=== PATIENT | female | born 1950 | race African-American/Black ===

== ENCOUNTER 2017-08-22 05:21 | Inpatient (IN) | payer OTHER ==
[~2017-08-22] VITALS: Ht 167.6 cm; Wt 123.8 kg
--- NOTE | ~2017-08-22 | EKG ---
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 : 1950 Requested By: Joo Hamilton Order Number: [id number] MD: Willem Michelle Measurements Intervals [place] Rate: 74 P: 43 MI: 196 QRS: -49 QRSD: 103 T: 88 QT: 578 QTc: 642 Interpretive Statements Sinus rhythm Left anterior fascicular block Abnormal R-wave progression, late transition Prolonged QT interval No previous ECG available for comparison Electronically Signed On 08-22-2017 10:39:30 CDT by Willem Michelle [email or web address] <ELECTRONICALLY SIGNED> By: Willem Michelle MD, [facility] 08/22/17 1039 Willem Michelle MD, [facility] /EPI
--- NOTE | ~2017-08-22 | O ---
[facility] [place] [address] OPERATIVE REPORT Name: NYDIA EASTMAN Room #: 424-P [facility] IN M.R.#: [id number] Admission: 08/22/17 Attend Phys: Joo Hamilton MD, F Discharge: Date of : 50 Report #: [id number] THIS REPORT FOR: //name// CC: Delma Hamilton DATE OF SERVICE: 08/22/2017 SURGEON: Joo Hamilton MD. RESEARCH NURSE PRACTITIONER: Bill Anne MD. PREOPERATIVE DIAGNOSES: 1. Morbid obesity. 2. Type 2 diabetes mellitus. 3. Arthritis. 4. Gastroesophageal reflux disease. 5. Hypertension. 6. Hypercholesterolemia. 7. Obstructive sleep apnea. POSTOPERATIVE DIAGNOSES: 1. Morbid obesity. 2. Type 2 diabetes mellitus. 3. Arthritis. 4. Gastroesophageal reflux disease. 5. Hypertension. 6. Hypercholesterolemia. 7. Obstructive sleep apnea. 8. Intraabdominal adhesions. PROCEDURE: Laparoscopic sleeve gastrectomy with EGD. ANESTHESIA: General endotracheal anesthesia and local anesthetic. ESTIMATED BLOOD LOSS: 5 mL. SPECIMEN: Lateral stomach. COMPLICATIONS: None appreciated. INDICATIONS FOR PROCEDURE: This is a 67-year-old female patient with a BMI of 44 at her last office visit (5 feet 6 inches tall, 273 pounds). The patient has been unable to lose significant weight with diet and exercise changes. Her maximum weight is 280 pounds. She has had difficulty with her weight since her early 30s after her . She has tried numerous weight loss programs and [facility] [address] [place] [address] OPERATIVE REPORT Name: NYDIA EASTMAN Room #: 424-P ADM IN M.R.#: [id number] Admission: 08/22/17 Attend Phys: Joo Hamilton MD, F Discharge: Date of : 50 Report #: [id number] plans with limited weight loss success. Any amount of weight she has lost, she has quickly regained, plus additional weight after stopping the modality. Bariatric surgery is indicated. She has been cleared from a multidisciplinary standpoint. She presents today for laparoscopic sleeve gastrectomy with EGD. OPERATIVE FINDINGS: On EGD, the patient had a normal appearing esophagus down to the GE junction and Z-line, measured at 38 cm from the teeth. Upon entrance into the stomach, the gastric mucosa was normal with no polyps, masses, diverticula or ulcers identified. The duodenum was normal to the third portion with similar findings. On retroflexion of the scope within the antrum of the stomach, there was no hiatal hernia appreciated. Laparoscopically, the patient had a normal appearing stomach. She had intraabdominal adhesions from her previous operations and takedown of these adhesions was necessary, although minimal. The gastric sleeve staple line was located 4 cm proximal/lateral to the pylorus, 3 cm lateral to the incisura of the stomach and 1 cm lateral to the GE junction. There was no evidence for a significant hiatal hernia. Her leak test was negative, whereby no air bubbles were seen forming within the Tisseel immediately after its application with insufflation of carbon dioxide into the sleeve. The excised stomach held nearly 1000 mL of fluid on the backtable. At the conclusion of the operation, the sponge, needle and instrument counts were correct. No other significant intra-abdominal pathology was seen, and there was no evidence for iatrogenic injury. DESCRIPTION OF PROCEDURE IN DETAIL: After the benefits and risks of the procedure were explained to the patient which include but are not limited to risks of bleeding, infection, postoperative pain, postoperative expectations and risks of DVT and pulmonary embolus, informed consent was obtained. The patient was identified in the preoperative holding area. The patient was given IV antibiotics as documented in the chart in line with [facility] protocol. The patient was then taken to the operating room and was placed in the supine position. The patient was given IV sedation and was intubated without incident. SCDs were placed on the patient's bilateral lower extremities prior to induction of anesthesia. The patient had been placed in the modified low lying dorsal lithotomy position in stirrups on the beanbag. The beanbag and the patient were taped to the bed to secure the patient. A time-out was then performed to correctly identify the patient and procedure. An orogastric tube was placed by anesthesia. A bite block was placed and the fiberoptic EGD scope was passed into the patient's oropharynx, down the esophagus, into the stomach, and into the third portion of the duodenum. Findings are as noted above. The scope was slowly withdrawn into the antrum and the scope was retroflexed. The hiatus was visualized. The scope was then straightened and the end of the gastroscope was placed at the pylorus. The [address] [address] OPERATIVE REPORT Name: NYDIA EASTMAN Room #: 424-P [facility] IN M.R.#: [id number] Admission: 08/22/17 Attend Phys: Joo Hamilton MD, F Discharge: Date of : 50 Report #: [id number] stomach was decompressed with the scope. The patient's abdomen was then prepped and draped in the standard sterile fashion with surgical prep. Local anesthetic was infiltrated into the skin and subcutaneous tissue in the left supraumbilical area where a sharp #15-blade scalpel was used to make a 5-mm incision. The 5-mm Visiport was placed intraperitoneally with the 5-mm 0-degree angled laparoscope. Pneumoperitoneum was then achieved with insufflation of carbon dioxide to 15 mmHg. A 5-mm 30-degree angled laparoscope was then inserted. The 15-mm port was placed in the right supraumbilical area after local anesthetic was infiltrated into the skin and subcutaneous tissue and an appropriately sized incision was made. Two additional 5 mm ports were placed in the left abdomen after local anesthetic was infiltrated and incisions were made. All ports were placed under direct visualization. The patient was then placed in reverse Trendelenburg position. Local anesthetic was infiltrated into the skin and subcutaneous tissue in the subxiphoid area and a 5-mm incision was made through which a 5-mm obturator was passed into the abdominal cavity through the fascia to create a passageway for the James liver retractor. The retractor was placed to retract the liver anteriorly. The retractor was held in place with the Iron Irradiated Fuel Handler apparatus. All abdominal adhesions were then taken down with blunt dissection, sharp dissection and judicious use of the ultrasonic dissector. The gastrosplenic ligament and short gastric vessels were then divided using the ultrasonic dissector with appropriate traction. Bleeding points were made hemostatic with the ultrasonic dissector. Dissection was carried proximally up to the left saman of the diaphragm. The distal end point of dissection was then measured at 4 cm proximal to the pylorus. The short gastric vessels and gastrocolic ligaments were dissected to that level. The stomach was then rotated medially to visualize any posterior attachments/adhesions to the stomach. The adhesions were dissected with a combination of sharp dissection and use of the ultrasonic dissector. The endoscope was then slightly withdrawn to place it along the lesser curvature of the stomach. Suction was applied to the orogastric tube which was then removed, leaving the endoscope in place as a 34-Jamaican bougie. The gastric sleeve was then created. Two black loads of the powered endoscopic MANUEL stapler buttressed with Jazmine-Strips were used to staple and divide the stomach 4 cm proximal to the pylorus. Additional green loads buttressed with Jazmine-strips were used to staple off the remainder of the stomach using the endoscope as the bougie. Care was taken to ensure that greater than 3 cm of space was present between the incisura and the staple line. The stomach was fully transected and placed in the right upper quadrant of the abdomen for later removal. 10 ml of Tisseel was applied to the entire length of the staple line with the Duplospray aerosolizer to fully ensure hemostasis. The leak test was performed next. The sleeve was insufflated with the [facility] [address] [place] [address] OPERATIVE REPORT Name: NYDIA EASTMAN Room #: 424-P [facility] IN M.R.#: [id number] Admission: 08/22/17 Attend Phys: Joo Hamilton MD, F Discharge: Date of : 50 Report #: [id number] endoscope which was slowly withdrawn. No air bubbles were seen forming in the Tisseel laparoscopically. Endoluminally, no bleeding was seen and the lumen was smooth and contoured. The stomach was fully decompressed and the scope was slowly withdrawn. The James liver retractor was then loosened from the Iron Irradiated Fuel Handler apparatus and it was removed from the abdominal cavity without difficulty. The stomach was then removed from the patient's body through the 15-mm port under direct visualization. A small amount stretching of the fascia was required to create an opening large enough for removal of the stomach. After its removal, the 15-mm port site fascial opening was closed with an 0-PDS suture using the Jordon-Moy laparoscopic fascial closure device. The suture was tied under direct visualization to ensure no incorporation of intraabdominal content. All ports were removed after the abdominal cavity was desufflated. Interrupted subcuticular 4-0 Monocryl sutures and Dermabond were used to close all skin incisions. The patient tolerated the procedure well. The patient was awakened, extubated and taken to the recovery room in stable condition with no apparent intraoperative complications. <ELECTRONICALLY SIGNED> By: Joo Hamilton MD, FACS 08/23/17 0735 1602 [id number] Joo Hamilton MD, FACS /nt
--- NOTE | ~2017-08-22 | S ---
[facility] [place] [address] [place] [address] SURGICAL PATH RPT PROCEDURE Name: NYDIA EASTMAN Room #: 424-P DIS IN M.R.#: [id number] Admission: 08/22/17 Date of : 50 Discharge: 08/23/17 Report #: [id number] Path Case #: [id number] PATHOLOGY REPORT COLLECTION DATE: 08/22/2017 RECEIVED DATE: 08/22/2017 SUBMITTING PHYS: Dr. Joo Hamilton OTHER PHYS: Dr. Delma Anne SPECIMEN(S) RECEIVED: A.Sleeve gastrectomy * * * * * * * * * * * * FINAL DIAGNOSIS: "Sleeve gastrectomy", partial gastrectomy: - Gastric mucosa, submucosa and muscular wall with minimal histologic alterations. (CLW:rolly; 08/23/2017) PATHOLOGIST: Leticia Diop M.D. REPORT ELECTRONICALLY SIGNED BY: Leticia Diop M.D. DATE/TIME: 08/23/2017 17:27 * * * * * * * * * * * * GROSS PATHOLOGY: Received in formalin labeled "Nydia Eastman, gastric sleeve" and consists of a stapled crescent shaped segment of stomach measuring 21.0 x 6.0 x 5.0 cm. The serosa is pink and glistening. Sectioning reveals no mucosal masses. Information Officer sections are submitted A1-A3. (DREW; 08/22/2017) CLINICAL HISTORY: Morbid obesity INITIAL CPT CODE(S): A; 49040 Professional services performed by [facility] at [facility] [address] [place] [address] Technical services performed by [facility] at [address] [place] [address]. [facility] [address] [place] [address] SURGICAL PATH RPT PROCEDURE Name: NYDIA EASTMAN Room #: 424-P DIS IN M.R.#: [id number] Admission: 08/22/17 Date of : 50 Discharge: 08/23/17 Report #: [id number] Path Case #: [id number] [address] PHONE: [phone] DIRECTOR: Johnie Jackson M.D. * * * END OF REPORT * * *
[~2017-08-22 05:21] MED LIST: ASPIR 8181 MG PO; COZAAR 25 MG TA25 M1 PO; GLUCOPHAGE1000 MG PO; GLUCOTROL5 MG PO; LIPITOR80 MG PO; LUMIGAN2.5 M1 OPHTHALMIC; PROTONIX40 M2 PO; SPIRONOLACTONE25 MG PO; VENTOLIN HFA 1818 GM INH; VITAMIN D1000 UNI1 PO; ZANTAC 150MG T150 MG PO
[2017-08-22 08:46] LABS: CALCIUM 9.9 mg/dL (8.5-10.1); CREATININE 1.3 mg/dL (0.6-1.0); POTASSIUM 3.9 mmol/L (3.5-5.1)
[2017-08-22 13:30] VITALS: BP 132/71
[2017-08-22 19:09] VITALS: BP 149/82
[2017-08-23 03:15] VITALS: BP 148/70
[2017-08-23 05:33] LABS: ABSOLUTE NEUTROPHILS 9.4 thou/uL (1.4-8.2); BASOPHILS 0.1 % (0.0-2.0); HEMATOCRIT 38.5 % (37.0-47.0); HEMOGLOBIN 12.7 gm/dL (12.0-15.0); LYMPHOCYTES 9.7 % (24.0-44.0); MCH 30.1 pg (26.0-34.0); MCV 91.3 fL (80.0-100.0); MONOCYTES 8.3 % (1.0-8.0); PLATELET COUNT 298 thou/uL (150-400); POLYS 81.9 % (36.0-66.0); RBC 4.22 mil/uL (4.20-5.00); RDW 14.2 % (10.5-14.5); WBC 11.5 thou/uL (4.0-11.0)
[2017-08-23 05:41] LABS: CALCIUM 9.2 mg/dL (8.5-10.1); CREATININE 1.6 mg/dL (0.6-1.0)
[2017-08-23 05:47] LABS: POTASSIUM 4.9 mmol/L (3.5-5.1)
[2017-08-23 07:10] VITALS: BP 129/65
[2017-08-23 10:49] VITALS: BP 129/65
== END 2017-08-23 12:17 | disposition home or self-care (01) | DRG 621 ==
LOC: 4E 05:21 → TBA 05:21 → PRE 08:24 → 4E 13:37
PROVIDERS: Surgery
PROC: 0DB64Z3 Excision of Stomach, Percutaneous Endoscopic Approach, Vertical (ICD-10-PCS; principal; 2017-08-22)
DX: E66.01 Morbid (severe) obesity due to excess calories (principal); Z68.41 Body mass index [BMI] 40.0-44.9, adult; E11.9 Type 2 diabetes mellitus without complications; K21.9 Gastro-esophageal reflux disease without esophagitis; I10 Essential (primary) hypertension; E78.00 Pure hypercholesterolemia, unspecified; K66.0 Peritoneal adhesions (postprocedural) (postinfection); G47.33 Obstructive sleep apnea (adult) (pediatric); M19.90 Unspecified osteoarthritis, unspecified site; Z79.899 Other long term (current) drug therapy
CPT/HCPCS: 10783; 50010; 50101; 50222; 50249; 50386; 50555; 50739; 50740; 50962; 51437; 52182; 52265; 53307; 53311; 54022; 54118; 56462; 56525; 56526; 57092; 62110; 62900; 70005

== ENCOUNTER → 2017-12-05 | Outpatient (CLI) | payer OTHER ==
[2017-12-05 10:47] LABS: FOLIC ACID 17.2 ng/mL (8.6-58.9)
== END ==
LOC: RAD 09:41
PROVIDERS: Surgery
DX: K44.9 Diaphragmatic hernia without obstruction or gangrene (principal); K21.9 Gastro-esophageal reflux disease without esophagitis; E11.9 Type 2 diabetes mellitus without complications; I10 Essential (primary) hypertension; E66.01 Morbid (severe) obesity due to excess calories; Z71.3 Dietary counseling and surveillance